=== PATIENT | female | born 1995 | race African-American/Black ===

== ENCOUNTER 2017-12-13 22:00 | Emergency (ER) | payer SELFPAY ==
[~2017-12-13] VITALS: Ht 154.9 cm; Wt 41.7 kg
[2017-12-13 22:14] VITALS: BP 113/72
== END 2017-12-14 03:29 | disposition left against medical advice (07) ==
LOC: ER 22:00
DX: Z53.21 Procedure and treatment not carried out due to patient leaving prior to being seen by health care provider (principal)